=== PATIENT | male | born 1935 ===

== ENCOUNTER 2017-04-30 05:17 | Inpatient (IN) | payer OTHER ==
[~2017-04-30] VITALS: Ht 186.7 cm; Wt 97.5 kg
[2017-04-30] VITALS (13 sets, daily range): BP systolic 110–164; BP diastolic 65–88
[~2017-04-30 05:17] MED LIST: ATENOLOL25 MG ORAL; ATORVASTATIN CA20 MG ORAL; BRIMONIDINE TART5 ML BOTH EYES; HYDROCHLOROTHIA25 MG ORAL; LEVOTHYROXINE25 MCG ORAL; LOSARTAN POTAS100 MG ORAL; TIMOPTIC 0.25%1 DROP BOTH EYES; TRAMADOL HCL50 MG ORAL; VALPROIC ACID250 MG PO; XALATAN2.5 ML BOTH EYES
[2017-04-30] MEDS ORDERED: Thrombin 5000 units TOPIC ONE (06:26)
[2017-04-30] MEDS ORDERED: Bupivacaine w/Epi 0.5% 30ml Vial INJ ONE (06:27)
[2017-04-30] MEDS ORDERED: Thrombin 5000 units spray kit TOPIC ONE (06:27)
[2017-04-30] MEDS ORDERED: Gelfoam Absorbable 1gm powder pkt TOPIC ONE (06:27)
[2017-04-30] MEDS ORDERED: fentaNYL 100 mcg/2 mL IV ONE (07:00)
[2017-04-30] MEDS ORDERED: LR 1000ml ONE (07:00)
[2017-04-30] MEDS ORDERED: ePHEDrine 50mg/ml Inj ONE (07:00)
[2017-04-30] MEDS ORDERED: NS Irrig 1000ml ONE (07:00)
[2017-04-30] MEDS ORDERED: Sterile Water Irrig 1000ml IRRIG ONE (07:00)
[2017-04-30] MEDS ORDERED: Midazolam 2mg/2ml Inj ONE (07:00)
[2017-04-30] MEDS ORDERED: Zemuron 50mg/5ml Inj IV ONE (07:00)
[2017-04-30] MEDS ORDERED: Bacitracin 50000 Units Vial IRRIG ONE (07:10)
--- NOTE | 2017-04-30 07:13 | Pre-Procedure Note/Attestation ---
Pre-Procedure Note/Attestation Complete Prior to Procedure Procedure Narrative: For bilateral Foraminotomies and stablization L2-3 and L3-4 Indications for Procedure Pre-Operative Diagnosis: Spinal and foraminal stenosis L2-3 & L3-4 Attestation I attest that I discussed the nature of the procedure; its benefits; risks and complications; and alternatives (and the risks and benefits of such alternatives ), prior to the procedure, with the patient (or the patient's legal auto service representative). I attest that, if there was a reasonable possibility of needing a blood transfusion, the patient (or the patient's legal auto service representative) was given the [place] [facility] [employer] [facility] standardized written summary, pursuant to the Richard Kasi Blood Safety Act ([place] Health and Safety Code # 1645, as amended). I attest that I re-evaluated the patient just prior to the surgery and that there has been no change in the patient's H&P, except as documented below: JOHN FERNANDEZ Apr 30, 2017 07:13
--- NOTE | 2017-04-30 08:38 | Anethesia Preoperative Eval ---
Anesthesia Pre-op PMH/ROS General Date of Evaluation: Apr 30, 2017 Time of Evaluation: 07:00 Anesthesiologist: Rolan ASA Score: ASA 3 Mallampati Score Class I : Soft palate, uvula, fauces, pillars visible Class II: Soft palate, uvula, fauces visible Class III: Soft palate, base of uvula visible Class IV: Only hard plate visible Mallampati Classification: Class III Surgeon: Ghassan Diagnosis: Spinal stenosis Surgical Procedure: Lumbar decompression with Coflex insertions Family History: no anesthesia problems Allergies: Coded Allergies: No Known Allergies (Unverified , 04/27/17) Medications: see eMAR Past Medical History Cardiovascular: Reports: HTN, Denies: CAD, [place], arrhythmia, other, valve dz Pulmonary: Reports: other - Reduced PFTs (FEV1 and FVC approximately 50% of predictable) Gastrointestinal/Genitourinary: Denies: CRI, ESRD, GERD, other Neurologic/Psychiatric: Reports: depression/anxiety, Denies: CVA, TIA, dementia, other Endocrine: Reports: hypothyroidism, Denies: DM, other, steroids HEENT: Reports: glaucoma, Denies: [place] (L), [place] (R), cataract (L), cataract (R), other Hematology/Immune: Denies: DVT, anemia, bleeding disorder, other Musculoskeletal/Integumentary: Denies: DDD, DJD, OA, RA, edema, other PMH Narrative: Hypothyroid, HTN, hypercholesterolemia, glaucoma PSxH Narrative: Thoracic aortic aneurism repair, cholecystectomy, thyroidectomy Anesthesia Pre-op Phys. Exam Physician Exam Last Vital Signs Date Time Temp Pulse Resp B/P Pulse Ox O2 Delivery O2 Flow Rate FiO2 04/30/17 06:06 97.9 53 20 164/88 97 Room Air Constitutional: NAD Neurologic: CN 2-12 intact Cardiovascular: RRR, no M/R/G Respiratory: CTA Gastrointestinal: S/NT/ND Airway Exam Mallampati Score: Class III MO: full ROM: full Teeth: intact Anesthesia Pre-op A/P Labs Within normal limits except for decreased PFTs (FVC and FEV1) Studies Pre-op Studies: EKG - Sinus verenice, echo - EF 55-60%, mild diastolic dysfunction , Risk Assessment & Plan Assessment: 82 yo male with h/o HTN, hypothyroid and decreased pulmonary function here for L2-3, L3-4 decompression with insertion of Coflex devices. Plan: Di SANCHEZ monitor Status Change Before Surgery: No Pre-Antibiotics Drug: Ancef Given Within 1 Hr of Incision: Yes Time Given: 07:30 ALYSSA BROWN M.D. Apr 30, 2017 08:38
[2017-04-30] MEDS ORDERED: LR 1000ml 1,000 ML IVLG SCH (08:41)
--- NOTE | 2017-04-30 08:41 | Immediate Post-Op Evaluation ---
Immediate Post-Op Evalulation Immediate Post-Op Evalulation Procedure: L2-3 and L3-4 decompression with insertion of Coflex devices Date of Evaluation: Apr 30, 2017 Time of Evaluation: 10:43 IV Fluids: 2000 Estimated Blood Loss: 300 Urinary Output: 150 Blood Pressure Systolic: 109 Blood Pressure Diastolic: 67 Pulse Rate: 66 Respiratory Rate: 17 O2 Sat by Pulse Oximetry: 100 Temperature (Fahrenheit): 97.3 Pain Score (1-10): 0 Nausea: No Vomiting: No Complications No complication Patient Status: reacts, patent, extubated, none Hydration Status: adequate Drug: Ancef Given Within 1 Hr of Incision: Yes Time Given: 07:30 ALYSSA BROWN M.D. Apr 30, 2017 08:41
[2017-04-30] MEDS ORDERED: Hydromorphone 0.5mg/0.5ml inj IVP PRN (08:45)
[2017-04-30] MEDS ORDERED: LR 1000ml 1,000 ML IV SCH (08:45)
[2017-04-30] MEDS ORDERED: Meperidine 25mg/0.5ml Inj (FOR RIGORS ONLY) IV PRN (08:45)
[2017-04-30] MEDS ORDERED: LORazepam Inj 2mg/ml 1ml IV PRN (08:45)
[2017-04-30] MEDS ORDERED: DiphenhydrAMINE 50mg/ml Inj IVP PRN ×2 (08:45→10:30)
[2017-04-30] MEDS ORDERED: Rate Change PCA 1 Each MISC PRN (10:30)
[2017-04-30] MEDS ORDERED: HYDROmorphone 1mg/ml Carpuject SUBQ PRN (10:30)
[2017-04-30] MEDS ORDERED: Naloxone 0.4mg/ml Inj IVP PRN ×2 (10:30)
[2017-04-30] MEDS ORDERED: Norco 5mg/325mg tab ORAL PRN (10:30)
[2017-04-30] MEDS ORDERED: HYDROmorphone 1mg/ml Carpuject IVP PRN (10:30)
[2017-04-30] MEDS ORDERED: Milk of Magnesia 30ml Ud ORAL PRN (10:30)
[2017-04-30] MEDS ORDERED: Norco 7.5mg/325mg tab ORAL PRN ×2 (10:30)
[2017-04-30] MEDS ORDERED: LORazepam 1mg tab ORAL PRN (10:30)
[2017-04-30] MEDS ORDERED: Acetaminophen 650 MG SUPP RECTAL PRN (10:30)
--- NOTE | 2017-04-30 10:37 | Operative Note - PDOC ---
Operative Note Operative Note Chief Complaint: Left Leg pain and low back pain Pre-op Diagnosis: Spinal and foraminal stenosis L2-3 & L3-4 Procedure: Posterior foraminotomies Bilateral L2-3, Left L3-4 with Coflex Implant L2-3 Post-op Diagnosis: same as pre-op Operative Findings: consistent w/pre-op dx studies Surgeon: Ghassan Branch Account Executive: ELIEL Fernandez Anesthesiologist: Rolan Anesthesia: general Specimen: none Complications: none Condition: stable Estimated Blood Loss: minimal Drains: none Implant(s) used?: Yes - CoFlex device 12 mm at L2-3 JOHN FERNANDEZ Apr 30, 2017 10:37
[2017-04-30] MEDS ORDERED: PCA HYDROmorphone 1mg/ml 30 ML IV ONE (11:14)
[2017-04-30] MEDS: PCA HYDROmorphone 1mg/ml 30 ML IV PRN (11:21)
[2017-04-30] MEDS ORDERED: PCA Education Pamphlet MISC ONE (11:30)
--- NOTE | 2017-04-30 11:48 | Diagnostic Imaging Report ---
Indication: PAIN, intraoperative Technique: Intraoperative Comparison: None Findings: Intraoperative imaging documents placement of the interspinous device bridging the L2 and L3 spinous processes Impression: Intraoperative imaging, as described
[2017-04-30] MEDS: ceFAZolin sod 1 GM in D5W 55 ML IV SCH (17:19)
[2017-04-30] MEDS: Pericolace tab ORAL SCH (17:19)
[2017-04-30] MEDS: Docusate 100mg cap ORAL SCH (17:19)
--- NOTE | 2017-04-30 17:50 | General Progress Note ---
Assessment/Plan Assessment/Plan Spinal and foraminal stenosis L2-3 & L3-4 Posterior foraminotomies Bilateral L2-3, Left L3-4 with Coflex Implant L2-3 PLAN 1. incentive spirometry 2. SCD 3. PT evaluation and therapy 4. Hydration 5. Pain management 6. discharge once stable with outpatient follow up Subjective Allergies: Coded Allergies: No Known Allergies (Unverified , 04/27/17) Subjective care noted and reviewed post op Objective Last 24 Hour Vital Signs Date Time Temp Pulse Resp B/P Pulse Ox O2 Delivery O2 Flow Rate FiO2 04/30/17 12:30 16 142/80 99 Room Air 04/30/17 12:30 18 04/30/17 12:05 16 04/30/17 11:55 98.5 58 17 136/74 99 Nasal Cannula 3.0 04/30/17 11:50 15 04/30/17 11:40 98.5 04/30/17 11:40 98.5 04/30/17 11:40 57 18 138/72 99 Nasal Cannula 3.0 04/30/17 11:35 16 04/30/17 11:25 60 13 131/69 99 Nasal Cannula 3.0 04/30/17 11:21 16 04/30/17 11:10 62 15 123/70 99 Nasal Cannula 3.0 04/30/17 11:00 63 13 123/83 100 Nasal Cannula 3.0 04/30/17 10:50 64 13 127/76 100 Simple Mask 6.0 04/30/17 10:41 63 17 121/70 100 Simple Mask 6.0 04/30/17 10:37 66 17 100 04/30/17 10:36 60 15 115/66 100 Simple Mask 6.0 04/30/17 10:31 97.3 62 12 110/65 100 Simple Mask 6.0 04/30/17 06:06 97.9 53 20 164/88 97 Room Air Height (Feet): 6 Height (Inches): 1.50 Weight (Pounds): 215 Objective WDWN NAD clear breath sounds bilaterally without rhonchi or wheeze [id number] without MRG NABS nontender no HSM no CCE nonfocal CHRISTEN MAXWELL Apr 30, 2017 17:50
--- NOTE | 2017-04-30 19:45 | Operative Note - Dictated ---
DATE OF OPERATION: 04/30/2017 SURGEON: Conrad Ferrell M.D. ORNAMENTAL METAL WORKER HELPER: TEJ Washburn. ANESTHESIOLOGIST: Richard Gongora M.D. ANESTHESIA: General endotracheal with arterial blood pressure monitoring. 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 OPERATIVE PROCEDURE: This is a posterior decompression at L2-L3 and L3-L4 by semi hemilaminotomy and undercutting facetectomy with a bilateral foraminotomy at both levels thus freeing both the traversing and exiting roots at L2-L3 and L3-L4. The interspinous ligament was taken down at the 2-3 level to allow better distraction and decompression in the midline. The stenosis is more severe at 2-3. The 2-3 level was stabilized with a 16 mm Coflex device fixed to the spinous process of L2 and L3. The patient was induced in the supine position. He was then turned prone on a Isaías frame. His knees and hips were gently flexed and padded. His abdomen was unencumbered. His head and neck were protected as were his eyes. His neck was gently flexed forward. His axillary and ulnar nerve was also checked. When this was all done, he was prepped and draped and a skin marker was used to identify the level of surgery. A 3-inch incision was made from the spinous process of L2-L4. The incision was carried down through skin and subcutaneous tissue. Dissection was done along the lateral aspect of the spinous process from L2-L4 reaching the lamina above and below and dissecting the paraspinous muscles laterally to the facet joint. A self-retaining Lu retractor was positioned, a 2-3 level on the left was approached first. All dorsal soft tissues were removed and then a small angled curette was used to find the trailing edge of the lamina at L2. This was freed and a 3 mm Kerrison was used to remove the undersurface of lamina. The facets were quite hypertrophic and a Midas was used to remove the inner third of the superior and inferior facet on the left at L2-L3 freeing the dural sac. The foramen was then widely opened as well. All remnants of the dorsal ligament was removed and the right-sided facet was also undercut to increase capacitance of the canal and a foraminotomy was accomplished on the right as well. The interspinous ligament and a portion of the spinous process was taken from L2 and L3 to allow access. The space was sized up to 16 mm with a Coflex template and a Coflex, which was 16 mm was then positioned mid spinous process, checked on image and then fastened with spikes by compressing into the spinous process of L2 and L3. Position was checked on x-ray. There was distraction at the 2-3 level with an obvious increase in size of the foramen. The decompression at 3-4 was done without taking the interspinous ligament down. The trailing edge of the L3 was identified. Ligamentum was removed with a small angled curette and a 3 Kerrison was used to remove the undersurface distal portion of the lamina across the midline. The facet was then removed with a Midas using an AMA bur. The medial third of the facet both superior and inferior were removed and a foraminotomy was done by opening the foramen across the distal facet at its base. The dural sac was exposed and filled out nicely and was pulsating with respiration. The decompression was also accomplished on the opposite right side. The openings were covered with thrombin-soaked Gelfoam and FloSeal. The wound was copiously irrigated. The interspinous ligament was closed to the dorsal fascia with interrupted sutures of #1 Vicryl. The subcutaneous layer was closed with 2-0 and the skin with a subcuticular and running subcutaneous suture. Blood loss was 200 to 300 mL. The patient was placed in a bulky dressing, returned to recovery room in good condition. Conrad Ferrell M.D. DR: CHRISTINE JOB#: [id number] CC:
[2017-04-30] MEDS: PCA shift volume MISC SCH (19:54)
[2017-04-30] MEDS: Brimonidine 0.2% Opth Sol BOTH EYES SCH (20:58)
[2017-04-30] MEDS: Atorvastatin 20mg tab ORAL SCH (21:59)
[2017-05-01] VITALS: BP 147/81
[2017-05-01] MEDS: ceFAZolin sod 1 GM in D5W 55 ML IV SCH ×2 (00:01→08:21)
[2017-05-01 04:00] VITALS: BP 143/86
[2017-05-01] MEDS: Levothyroxine 25mcg tab ORAL SCH (06:30)
[2017-05-01] MEDS: PCA shift volume MISC SCH ×2 (07:23→20:05)
--- NOTE | 2017-05-01 07:39 | 48 Hour Post Anesthesia Eval ---
Post Anesthesia Evaluation Procedure: L2-3 and L3-4 decompression with insertion of Coflex devices Date of Evaluation: May 01, 2017 Time of Evaluation: 07:38 Blood Pressure Systolic: 143 0: 86 Pulse Rate: 75 Respiratory Rate: 17 Temperature (Fahrenheit): 98.7 O2 Sat by Pulse Oximetry: 99 Airway: patent Nausea: No Vomiting: No Pain Intensity: 2 Hydration Status: adequate Cardiopulmonary Status: Stable Mental Status/LOC: patient returned to baseline Follow-up Care/Observations: 0 Post-Anesthesia Complications: 0 Follow-up care needed: N/A Jose Armando Bean MD May 01, 2017 07:39
[2017-05-01 08:00] VITALS: BP 146/86
[2017-05-01] MEDS: Timolol 0.5% Op Soln 2.5ml BOTH EYES SCH ×2 (08:22→17:54)
[2017-05-01] MEDS: Brimonidine 0.2% Opth Sol BOTH EYES SCH ×2 (08:22→17:54)
[2017-05-01] MEDS: Pericolace tab ORAL SCH ×2 (08:24→17:54)
[2017-05-01] MEDS: Atenolol 25mg tab ORAL SCH (08:24)
[2017-05-01] MEDS: Docusate 100mg cap ORAL SCH ×2 (08:24→17:54)
[2017-05-01] MEDS: Losartan 50mg tab ORAL SCH (08:25)
--- NOTE | 2017-05-01 09:11 | General Surgery Progress Note ---
General Surgery-Progress Note Subjective Procedure Performed Posterior foraminotomies Bilateral L2-3, Left L3-4 with Coflex Implant L2-3 Chief Complaint: Left Leg and Low Cack Pain Symptoms: improved Objective Last 24 Hour Vital Signs Date Time Temp Pulse Resp B/P Pulse Ox O2 Delivery O2 Flow Rate FiO2 05/01/17 08:25 146/86 05/01/17 08:24 96 146/86 05/01/17 08:00 18 05/01/17 08:00 97.7 96 20 146/86 95 Room Air 05/01/17 07:39 75 17 99 05/01/17 04:00 98.7 75 19 143/86 99 Room Air 05/01/17 04:00 16 05/01/17 00:00 16 05/01/17 00:00 98.3 67 18 147/81 100 Nasal Cannula 2.5 04/30/17 20:00 16 04/30/17 20:00 98.3 65 18 160/84 98 Nasal Cannula 2.5 04/30/17 16:00 18 04/30/17 16:00 98.3 17 142/80 99 Room Air 04/30/17 12:30 16 142/80 99 Room Air 04/30/17 12:30 18 04/30/17 12:05 16 04/30/17 11:55 98.5 58 17 136/74 99 Nasal Cannula 3.0 04/30/17 11:50 15 04/30/17 11:40 98.5 04/30/17 11:40 98.5 04/30/17 11:40 57 18 138/72 99 Nasal Cannula 3.0 04/30/17 11:35 16 04/30/17 11:25 60 13 131/69 99 Nasal Cannula 3.0 04/30/17 11:21 16 04/30/17 11:10 62 15 123/70 99 Nasal Cannula 3.0 04/30/17 11:00 63 13 123/83 100 Nasal Cannula 3.0 04/30/17 10:50 64 13 127/76 100 Simple Mask 6.0 04/30/17 10:41 63 17 121/70 100 Simple Mask 6.0 04/30/17 10:37 66 17 100 04/30/17 10:36 60 15 115/66 100 Simple Mask 6.0 04/30/17 10:31 97.3 62 12 110/65 100 Simple Mask 6.0 I&O Intake and Output 04/30/17 05/01/17 19:00 07:00 Intake Total 2555 ml 300 ml Output Total 500 ml 2375 ml Balance 2055 ml -2075 ml Intake IV Total 2555 ml 100 ml Other 200 ml Output Urine Total 200 ml 2375 ml Estimated Blood Loss 300 ml Dressing: dry Wound: clean Drains: none Additional Comments Strength both lower extremities: 5/. Pt to begin PT today. JOHN Castro May 01, 2017 09:11
[2017-05-01 11:28] VITALS: BP 127/81
[2017-05-01] MEDS: PCA HYDROmorphone 1mg/ml 30 ML IV PRN (12:34)
--- NOTE | 2017-05-01 14:13 | General Progress Note ---
Assessment/Plan Assessment/Plan Spinal and foraminal stenosis L2-3 & L3-4 Posterior foraminotomies Bilateral L2-3, Left L3-4 with Coflex Implant L2-3 PLAN 1. incentive spirometry 2. SCD 3. PT evaluation and therapy 4. Hydration 5. Pain management 6. discharge once stable with outpatient follow up Subjective Allergies: Coded Allergies: No Known Allergies (Unverified , 04/27/17) Subjective care noted and reviewed post op Objective Last 24 Hour Vital Signs Date Time Temp Pulse Resp B/P Pulse Ox O2 Delivery O2 Flow Rate FiO2 05/01/17 12:42 18 05/01/17 12:00 18 05/01/17 11:28 98.6 72 20 127/81 94 Nasal Cannula 2.0 05/01/17 08:25 146/86 05/01/17 08:24 96 146/86 05/01/17 08:00 18 05/01/17 08:00 97.7 96 20 146/86 95 Room Air 05/01/17 07:39 75 17 99 05/01/17 04:00 98.7 75 19 143/86 99 Room Air 05/01/17 04:00 16 05/01/17 00:00 16 05/01/17 00:00 98.3 67 18 147/81 100 Nasal Cannula 2.5 04/30/17 20:00 16 04/30/17 20:00 98.3 65 18 160/84 98 Nasal Cannula 2.5 04/30/17 16:00 18 04/30/17 16:00 98.3 17 142/80 99 Room Air Intake and Output 04/30/17 05/01/17 19:00 07:00 Intake Total 2555 ml 300 ml Output Total 500 ml 2375 ml Balance 2055 ml -2075 ml IV Total 2555 ml 100 ml Other 200 ml Output Urine Total 200 ml 2375 ml Estimated Blood Loss 300 ml Height (Feet): 6 Height (Inches): 1.50 Weight (Pounds): 215 Objective WDWN NAD clear breath sounds bilaterally without rhonchi or wheeze [id number] without MRG NABS nontender no HSM no CCE nonfocal CHRISTEN MAXWELL May 01, 2017 14:13
[2017-05-01 16:17] VITALS: BP 129/79
[2017-05-01] MEDS: Atorvastatin 20mg tab ORAL SCH (20:05)
[2017-05-01 20:15] VITALS: BP 151/83
[2017-05-02 00:28] VITALS: BP 155/98
[2017-05-02 04:00] VITALS: BP 169/89
[2017-05-02] MEDS: Levothyroxine 25mcg tab ORAL SCH (06:37)
[2017-05-02 08:00] VITALS: BP 165/92
[2017-05-02] MEDS: Docusate 100mg cap ORAL SCH ×2 (08:53→18:20)
[2017-05-02] MEDS: Atenolol 25mg tab ORAL SCH (08:53)
[2017-05-02] MEDS: Losartan 50mg tab ORAL SCH (08:54)
[2017-05-02] MEDS: Pericolace tab ORAL SCH ×2 (08:54→18:20)
[2017-05-02] MEDS: Timolol 0.5% Op Soln 2.5ml BOTH EYES SCH ×2 (08:54→18:20)
[2017-05-02] MEDS: Brimonidine 0.2% Opth Sol BOTH EYES SCH ×2 (08:54→18:20)
--- NOTE | 2017-05-02 10:52 | General Progress Note ---
Assessment/Plan Assessment/Plan Spinal and foraminal stenosis L2-3 & L3-4 Posterior foraminotomies Bilateral L2-3, Left L3-4 with Coflex Implant L2-3 hypertension PLAN 1. incentive spirometry 2. SCD 3. PT evaluation and therapy 4. Hydration 5. Pain management 6. discharge once stable with outpatient follow up 7. Clonidine PRN Subjective Allergies: Coded Allergies: No Known Allergies (Unverified , 04/27/17) Subjective care noted and reviewed post op Objective Last 24 Hour Vital Signs Date Time Temp Pulse Resp B/P Pulse Ox O2 Delivery O2 Flow Rate FiO2 05/02/17 08:54 165/92 05/02/17 08:53 78 165/92 05/02/17 08:00 99.6 78 20 165/92 96 Room Air 05/02/17 06:37 169/89 05/02/17 04:00 98.1 73 18 169/89 95 Room Air 05/02/17 00:28 97.9 76 17 155/98 93 Room Air 05/01/17 20:15 99.1 70 18 151/83 98 Room Air 05/01/17 20:00 16 05/01/17 16:17 98.3 83 20 129/79 96 Nasal Cannula 2.0 05/01/17 16:00 18 05/01/17 15:06 98.6 05/01/17 12:42 18 05/01/17 12:00 18 05/01/17 11:28 98.6 72 20 127/81 94 Nasal Cannula 2.0 Intake and Output 05/01/17 05/02/17 19:00 07:00 Intake Total 1080 ml 240 ml Output Total 600 ml 1300 ml Balance 480 ml -1060 ml Intake Oral 1080 ml 240 ml Output Urine Total 600 ml 1300 ml # Voids 1 Height (Feet): 6 Height (Inches): 1.50 Weight (Pounds): 215 Objective WDWN NAD clear breath sounds bilaterally without rhonchi or wheeze [id number] without MRG NABS nontender no HSM no CCE nonfocal CHRISTEN MAXWELL May 02, 2017 10:52
[2017-05-02 12:00] VITALS: BP 135/84
--- NOTE | 2017-05-02 12:02 | General Surgery Progress Note ---
General Surgery-Progress Note Subjective Procedure Performed Posterior foraminotomies Bilateral L2-3, Left L3-4 with Coflex Implant L2-3 Symptoms: improved Objective Last 24 Hour Vital Signs Date Time Temp Pulse Resp B/P Pulse Ox O2 Delivery O2 Flow Rate FiO2 05/02/17 08:54 165/92 05/02/17 08:53 78 165/92 05/02/17 08:00 99.6 78 20 165/92 96 Room Air 05/02/17 06:37 169/89 05/02/17 04:00 98.1 73 18 169/89 95 Room Air 05/02/17 00:28 97.9 76 17 155/98 93 Room Air 05/01/17 20:15 99.1 70 18 151/83 98 Room Air 05/01/17 20:00 16 05/01/17 16:17 98.3 83 20 129/79 96 Nasal Cannula 2.0 05/01/17 16:00 18 05/01/17 15:06 98.6 05/01/17 12:42 18 05/01/17 12:00 18 I&O Intake and Output 05/01/17 05/02/17 19:00 07:00 Intake Total 1080 ml 240 ml Output Total 600 ml 1300 ml Balance 480 ml -1060 ml Intake Oral 1080 ml 240 ml Output Urine Total 600 ml 1300 ml # Voids 1 Dressing: dry Wound: clean Drains: none Additional Comments Patient had some oversedation symptoms last evening. FORM BUILDER HELPER stopped and this AM patient appears more alert and appropriate. D/C'd Mccain this AM. Physical therapy working with patient, still not indepemdent. JOHN Castro May 02, 2017 12:02
[2017-05-02 16:00] VITALS: BP 126/85
[2017-05-02 20:00] VITALS: BP 130/86
[2017-05-02] MEDS: Atorvastatin 20mg tab ORAL SCH (20:36)
[2017-05-03 00:22] VITALS: BP 142/91
[2017-05-03 04:43] VITALS: BP 138/90
[2017-05-03] MEDS: Levothyroxine 25mcg tab ORAL SCH (05:38)
[2017-05-03 08:26] VITALS: BP 145/91
[2017-05-03] MEDS: Docusate 100mg cap ORAL SCH ×2 (08:56→17:54)
[2017-05-03] MEDS: Timolol 0.5% Op Soln 2.5ml BOTH EYES SCH ×2 (08:56→17:54)
[2017-05-03] MEDS: Brimonidine 0.2% Opth Sol BOTH EYES SCH ×2 (08:56→17:55)
[2017-05-03] MEDS: Pericolace tab ORAL SCH ×2 (08:56→17:54)
[2017-05-03] MEDS: Atenolol 25mg tab ORAL SCH (08:57)
[2017-05-03] MEDS: Losartan 50mg tab ORAL SCH (08:57)
[2017-05-03 12:00] VITALS: BP 125/74
--- NOTE | 2017-05-03 13:07 | General Progress Note ---
Assessment/Plan Assessment/Plan Spinal and foraminal stenosis L2-3 & L3-4 Posterior foraminotomies Bilateral L2-3, Left L3-4 with Coflex Implant L2-3 hypertension PLAN 1. incentive spirometry 2. SCD 3. PT evaluation and therapy 4. Hydration 5. Pain management 6. discharge hopefully in am 7. Clonidine PRN Subjective Allergies: Coded Allergies: No Known Allergies (Unverified , 04/27/17) Subjective care noted and reviewed post op care noted confusion better Objective Last 24 Hour Vital Signs Date Time Temp Pulse Resp B/P Pulse Ox O2 Delivery O2 Flow Rate FiO2 05/03/17 12:00 99.9 68 20 125/74 95 Room Air 05/03/17 08:57 145/91 05/03/17 08:57 69 145/91 05/03/17 08:26 99.7 69 20 145/91 94 Room Air 05/03/17 04:43 98.1 81 19 138/90 94 Room Air 05/03/17 00:22 97.4 76 17 142/91 95 Room Air 05/02/17 20:00 98.4 86 18 130/86 95 Room Air 05/02/17 16:00 98.6 80 20 126/85 96 Room Air Intake and Output 05/02/17 05/03/17 19:00 07:00 Intake Total 1280 ml 900 ml Output Total 400 ml Balance 1280 ml 500 ml Intake Oral 480 ml IV Total 800 ml 900 ml Output Urine Total 400 ml # Voids 1 Height (Feet): 6 Height (Inches): 1.50 Weight (Pounds): 215 Objective WDWN NAD clear breath sounds bilaterally without rhonchi or wheeze [id number] without MRG NABS nontender no HSM no CCE nonfocal confusion better CHRISTEN MAXWELL May 03, 2017 13:07
[2017-05-03 16:00] VITALS: BP 134/80
[2017-05-03] MEDS: Atorvastatin 20mg tab ORAL SCH (20:18)
[2017-05-03 20:48] VITALS: BP 139/78
[2017-05-04 00:25] VITALS: BP 149/82
[2017-05-04 04:30] VITALS: BP 132/79
[2017-05-04] MEDS: Levothyroxine 25mcg tab ORAL SCH (05:35)
--- NOTE | 2017-05-04 08:35 | General Progress Note ---
Assessment/Plan Assessment/Plan Spinal and foraminal stenosis L2-3 & L3-4 Posterior foraminotomies Bilateral L2-3, Left L3-4 with Coflex Implant L2-3 hypertension PLAN 1. incentive spirometry 2. SCD 3. PT evaluation and therapy 4. Hydration 5. Pain management 6. discharge today Subjective Allergies: Coded Allergies: No Known Allergies (Unverified , 04/27/17) Subjective care noted and reviewed post op care noted Objective Last 24 Hour Vital Signs Date Time Temp Pulse Resp B/P Pulse Ox O2 Delivery O2 Flow Rate FiO2 05/04/17 04:30 97.5 69 22 132/79 95 Room Air 05/04/17 00:25 99.8 67 22 149/82 95 Room Air 05/03/17 20:48 99.1 69 18 139/78 95 Room Air 05/03/17 16:00 100.4 75 22 134/80 97 Room Air 05/03/17 12:00 99.9 68 20 125/74 95 Room Air 05/03/17 08:57 145/91 05/03/17 08:57 69 145/91 Intake and Output 05/03/17 05/04/17 19:00 07:00 Intake Total 1000 ml Output Total 200 ml Balance -200 ml 1000 ml IV Total 1000 ml Output Urine Total 200 ml # Voids 1 # Bowel Movements 1 1 Height (Feet): 6 Height (Inches): 1.50 Weight (Pounds): 215 Objective WDWN NAD clear breath sounds bilaterally without rhonchi or wheeze [id number] without MRG NABS nontender no HSM no CCE nonfocal confusion better CHRISTEN MAXWELL May 04, 2017 08:35
[2017-05-04 08:46] VITALS: BP 134/82
[2017-05-04] MEDS: Brimonidine 0.2% Opth Sol BOTH EYES SCH (09:09)
[2017-05-04] MEDS: Docusate 100mg cap ORAL SCH (09:09)
[2017-05-04] MEDS: Losartan 50mg tab ORAL SCH (09:10)
[2017-05-04] MEDS: Atenolol 25mg tab ORAL SCH (09:10)
[2017-05-04] MEDS: Pericolace tab ORAL SCH (09:10)
[2017-05-04] MEDS: Timolol 0.5% Op Soln 2.5ml BOTH EYES SCH (09:10)
[2017-05-04 12:32] VITALS: BP 128/69
[2017-05-04 12:33] VITALS: BP 105/68
[2017-05-04] MEDS ORDERED: Tubing IV Secondary IV ONE (17:20)
--- NOTE | 2017-05-07 10:56 | Discharge Summary ---
Discharge Summary Hospital Course Date of Admission Apr 30, 2017 at 05:17 Date of Discharge May 04, 2017 at 17:21 Admitting Diagnosis 1. 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 2.Severe spinal and foraminal stenosis stenosis Reason for Hospitalization: elective surgery HPI Gomez Baker is a 82 year old male who was admitted on Apr 30, 2017 at 05:17 for Severe Spinal Canal Stenosis for elective surgery Consultations dr Lopez -IM Procedures 04/30/17 dr Ferrell Posterior foraminotomies Bilateral L2-3, Left L3-4 with Coflex Implant L2-3 Hospital Course s/p surgery course of recovery uneventful surgery followed initially IVF, dc when tolerated diet pain management, initially with AUTOMOTIVE SALES ASSOCIATE, dc 05/02 and transitioned to oral prior to dc neurovascular intact IS at the bedside SCD PT eval and Rx, ambulated Mccain dc 05/02, voided freekly BP management with current regimen, stable pain controlled, NV intact, dressing C/D/I, ambulated with PT, voided freely, tolerated diet , BP stable dc home fup with surgeon as outpatient FINAL DIAGNOSIS 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 Severe spinal stenosis Foraminal stenosis L2-3 & L3-4 s/p 04/30 Posterior foraminotomies Bilateral L2-3, Left L3-4 with Coflex Implant L2-3 Discharge Medications Continued Medications: Atenolol* (Tenormin*) 25 Mg Tablet 25 MG ORAL DAILY, TAB Atorvastatin Calcium* (Atorvastatin Calcium*) 20 Mg Tablet 20 MG ORAL BEDTIME, TAB Brimonidine Tartrate* (Alphagan*) 5 Ml Drops 1 DROP BOTH EYES BI, ML Hydrochlorothiazide* (Hydrochlorothiazide*) 25 Mg Tablet 25 MG ORAL DAILY, TAB Latanoprost* (Xalatan*) 2.5 Ml Drops 1 DROP BOTH EYES DA, #2.5 ML 0 Refills Levothyroxine Sodium* (Levothyroxine Sodium*) 25 Mcg Tablet 25 MCG ORAL DAILY, TAB Take in the morning on an empty stomach, at least 30 minutes before food. Losartan Potassium (Losartan Potassium) 100 Mg Tablet 100 MG ORAL DAILY, TAB Timolol Maleate (Timolol Maleate) 5 Ml Drops 1 DROP BOTH EYES TWICE A DAY, #1 ML 0 Refills Tramadol Hcl* (Ultram*) 50 Mg Tablet 50 MG ORAL JOSE MARIA PRN for For Pain, #30 TAB 0 Refills Valproic Acid (Valproic Acid) 250 Mg Capsule 250 MG PO AM, CAP Valproic Acid (Valproic Acid) 250 Mg Capsule 500 MG PO BEDTIME, CAP Discharge Condition Upon Discharge: stable Discharge Disposition Patient was discharged to Home with Home Health(06) Discharge Diagnoses: Discharge Instructions Discharge Instructions Special Instructions I have been assigned to complete a D/C Summary on this account. I was not involved in the patient management Aurelia Warren NP ([place]) May 07, 2017 10:56
== END 2017-05-04 17:21 | disposition home health service (06) | DRG 517 ==
LOC: SDSOVERFLO 05:17 → EDBD 07:00 → 3E 12:25
PROC: 01NB0ZZ Release Lumbar Nerve, Open Approach (ICD-10-PCS; principal; 2017-04-30 07:00)
DX: M47.26 Other spondylosis with radiculopathy, lumbar region (principal); I10 Essential (primary) hypertension; M48.06 Spinal stenosis, lumbar region; E03.9 Hypothyroidism, unspecified; F41.9 Anxiety disorder, unspecified; H40.9 Unspecified glaucoma; M19.90 Unspecified osteoarthritis, unspecified site
CPT/HCPCS: 36415; 70450; 72020; 76001; 86850; 86870; 86900; 86901; 87081; 94003; 94150; C9399; J2250; J2405